=== PATIENT | female | born 1960 | race Caucasian/White ===

== ENCOUNTER → 2019-02-16 | Outpatient (CLI) | payer OTHER | LOC: LL.MAM 09:50 | PROVIDERS: ATTEND Physician Assistant | DX: N63.10 Unspecified lump in the right breast, unspecified quadrant (principal); R59.9 Enlarged lymph nodes, unspecified; I99.8 Other disorder of circulatory system | CPT/HCPCS: 77066; G0279 ==

== ENCOUNTER 2024-10-19 12:00 | Emergency (ER) | payer OTHER ==
[2024-10-19] MEDS ORDERED: Sodium Chloride 0.9% 10 ML Syringe FLUSH PRN (12:13)
[2024-10-19 12:33] LABS: BASOPHILS ABSOLUTE AUTO 0.04 K/uL (0.00-0.20); BASOPHILS PERCENT AUTO 0.6 % (0.0-2.0); EOSINOPHILS ABSOLUTE AUTO 0.23 K/uL (0.00-0.50); EOSINOPHILS PERCENT AUTO 3.4 % (0.0-5.0); IMMATURE GRAN ABSOLUTE AUTO 0.01 10^3/uL (0.00-0.04); IMMATURE GRAN PERCENT AUTO 0.1 % (0.0-0.4); LYMPHOCYTES ABSOLUTE AUTO 1.38 K/uL (0.50-3.50); LYMPHOCYTES PERCENT AUTO 20.2 % (10.0-50.0); MONOCYTES ABSOLUTE AUTO 0.61 K/uL (0.00-1.00); MONOCYTES PERCENT AUTO 8.9 % (2.0-14.0); NEUTROPHILS ABSOLUTE AUTO 4.56 K/uL (1.40-7.00); NEUTROPHILS PERCENT AUTO 66.8 % (45.0-80.0); PLATELET COUNT,PLT 233 K/uL (150-350); RED BLOOD CELL COUNT 4.08 M/uL (3.77-5.09); RED CELL DISTRIBUTION WIDTH 11.8 % (11.2-14.1); WHITE BLOOD CELL COUNT,WBC 6.8 K/uL (4.0-10.2)
[2024-10-19 12:56] LABS: ALANINE AMINOTRANSFERASE,ALT 23 U/L (12-78); ASPARTATE AMNIOTRANSFERASE,AST 16 U/L (15-37); BILIRUBIN TOTAL 0.4 mg/dL (0.2-1.0); BLOOD UREA NITROGEN,BUN 11 mg/dL (7-18); CARBON DIOXIDE,CO2 29.4 mmol/L (21.0-32.0); CHLORIDE,CL 102 mmol/L (98-107); CREATININE 0.73 mg/dL (0.51-1.17); GLUCOSE RANDOM 145 mg/dL (70-99); POTASSIUM,K 4.6 mmol/L (3.5-5.1); PROTEIN TOTAL,TP 6.9 g/dL (6.4-8.2); SODIUM,NA 137 mmol/L (136-145)
[2024-10-19 12:57] LABS: ESTIMATED GFR 91 mL/min (>=60)
[2024-10-19 13:07] LABS: APPEARANCE,URINE CLEAR; GLUCOSE,URINE NEGATIVE (NEGATIVE); OCCULT BLOOD,URINE NEGATIVE (NEGATIVE)
== END 2024-10-19 13:24 | disposition home or self-care (01) ==
LOC: LL.ED 12:00
DX: R55 Syncope and collapse (principal); I10 Essential (primary) hypertension; K21.9 Gastro-esophageal reflux disease without esophagitis; E03.9 Hypothyroidism, unspecified; Z91.048 Other nonmedicinal substance allergy status; Z88.5 Allergy status to narcotic agent; Z79.890 Hormone replacement therapy; Z79.899 Other long term (current) drug therapy
CPT/HCPCS: 36415; 70450; 73562-LT; 73610-RT; 80053; 81003; 82947; 83735; 84484; 85025; 93005; 93010; 99284